=== PATIENT | male | born 2000 | race Caucasian/White ===

== ENCOUNTER 2024-08-14 13:08 | Emergency (ER) | payer OTHER, SELFPAY ==
[2024-08-14 13:12] VITALS: BP 130/78; PULSE 73; RESP 18; TEMP 36.9; O2SAT 97
[2024-08-14 15:56] VITALS: BP 126/75; PULSE 74; RESP 18; TEMP 36.8; O2SAT 100
--- NOTE | 2024-08-14 16:12 | ED_ITS ---
HPI - General Adult General Chief complaint: Unspecified Stated complaint: swollen tonsils, ST - left side Time Seen by Provider: 08/14/24 16:12 Source: patient Mode of arrival: ambulatory Limitations: no limitations History of Present Illness HPI narrative: this is a 24-year-old male who presents to the ED for chief complaint of sore throat beginning last night worse today. Reports that his voice feels very scr atchy but not muffled. Endorses pain primarily on the left side. He attempted to go to urgent care earlier this morning but they did not take his insurance and sent him to the hospital. denies fevers, trismus, drooling. Related Data Allergies Allergy/AdvReac Type Severity Reaction Status Date / Time No Known Allergies Allergy Verified 08/14/24 16:12 Review of Systems Review of Systems: All systems as dictated in HPI Exam Narrative: GENERAL: Well-appearing, well-nourished, and in no acute distress. HEAD: Normocephalic, atraumatic. EYES: PERRLA and EOMI. ENT: Bilateral tonsillar exudates noted. Mild tonsillar hypertrophy bilaterally. Uvula midline. No trismus. No drooling. No muffled voice. Nares clear, no rhinorrhea or epistaxis. Mucous membranes moist. NECK: Supple. No adenopathy or masses. CHEST: No respiratory distress. Clear to auscultation. No wheezes rales or rhonchi HEART: Regular rate and rhythm. No murmur heard. Normal peripheral pulses. ABDOMEN: Soft, nontender, nondistended, normal active bowel sounds. MSK: Normal range of motion. No edema. SKIN: Warm, dry, no rash. NEURO: Alert and oriented x4. No focal deficits. PSYCH: Normal mood and affect. Course Vital Signs Vital signs: Vital Signs Temperature 98.5 F 08/14/24 13:12 Pulse Rate 73 08/14/24 13:12 Respiratory Rate 18 08/14/24 13:12 Blood Pressure 130/78 08/14/24 13:12 Pulse Oximetry 97 08/14/24 13:12 Temperature 98.2 F 08/14/24 15:56 Pulse Rate 74 08/14/24 15:56 Respiratory Rate 18 08/14/24 15:56 Blood Pressure 126/75 08/14/24 15:56 Pulse Oximetry 100 08/14/24 15:56 Medical Decision Making MDM Narrative Medical decision making narrative: This is a 24-year-old male who presents to the ED for chief complaint of sore throat. Vitals are normal. Exam does show exudate of tonsillitis. There is no evidence of [employer] or other deep space infection on exam. Not toxic appearing. Strep swabs (+) Rx for Augmentin given. Patient will be discharged in stable condition. Supportive measures discussed and return precautions given. Patient is understanding and agreeable with plan for discharge with PCP follow-up. Vital Signs Vital Signs: Vital Signs Temperature 98.5 F 08/14/24 13:12 Pulse Rate 73 08/14/24 13:12 Respiratory Rate 18 08/14/24 13:12 Blood Pressure 130/78 08/14/24 13:12 Pulse Oximetry 97 08/14/24 13:12 Temperature 98.2 F 08/14/24 15:56 Pulse Rate 74 08/14/24 15:56 Respiratory Rate 18 08/14/24 15:56 Blood Pressure 126/75 08/14/24 15:56 Pulse Oximetry 100 08/14/24 15:56 Lab Data Labs: Lab Results 08/14/24 Range/Units 16:14 Group A Strep (PCR) Detected A (Negative) Discharge Plan Discharge Clinical Impression: Strep pharyngitis Patient Disposition: Home, Self-Care Condition: Stable Instructions: Antibiotic Form Additional Instructions: exam today does show evidence of strep throat. please take antibiotics as prescribed. return to the ER for any new or worsening symptoms. Prescriptions: New amoxicillin-pot clavulanate 875-125 mg tablet 1 tablet PO Q12H Qty: 14 0RF Follow-up/Referrals: PHYSICIAN,VOCATIONAL EDUCATION TEACHER [Primary Care Provider] - Time of Disposition: 16:46
[2024-08-14 16:44] LABS: Strep Group A RT-PCR DETECTED (Negative)
== END 2024-08-14 17:02 | disposition home or self-care (01) ==
LOC: ANHED 17:01
PROVIDERS: Emergency Provider Physician Assistant
DX: J02.0 Streptococcal pharyngitis (principal)
CPT/HCPCS: 87651; 99283